=== PATIENT | female | born 1945 | race Caucasian/White ===

== ENCOUNTER 2017-10-04 14:19 | Outpatient (CLI) | payer MEDICARE, BC ==
[2017-10-04 16:10] LABS: #Basophils 0.1 thou/uL (0.0-0.2); #Eosinphils 0.3 thou/uL (0.0-0.7); #Lymphocytes 2.5 thou/uL (1.20-3.40); #Monocytes 0.3 thou/uL (0.11-0.59); #Neutrophils 3.4 thou/uL (1.40-6.50); %Basophils 1.2 % (0.0-1.0); %Eosinophils 4.4 % (0.0-10.0); %Lymphocytes 38.9 % (21.0-51.0); %Neutrophils 51.6 % (42.0-75.0); Hemoglobin 12.5 g/dL (12.0-16.0); Mean Corpuscular HGB CONC 34.7 g/dL (32.0-36.0); Mean Corpuscular Hemoglobin 31.6 pg (27.0-31.0); Mean Corpuscular Volume 91.1 fL (78.0-98.0); Mean Platelet Volume 6.7 fL (7.4-10.4); Platelet Count 273 thou/uL (130-400); RBC Distribution Width 11.4 % (11.5-14.5); Red Blood Cell (RBC) Count 3.95 mill/uL (4.20-5.40); White Blood Cell (WBC) Count 6.5 thou/uL (4.8-10.8)
== END 2017-10-04 14:20 | disposition home or self-care (01) ==
LOC: LABBT 14:19
PROVIDERS: ATTEND Orthopaedic Surgery Hand Surgery
DX: Z01.812 Encounter for preprocedural laboratory examination (principal); M06.341 Rheumatoid nodule, right hand
CPT/HCPCS: 85025

== ENCOUNTER 2017-10-11 07:52 | Day surgery (SDC) | payer MEDICARE, BC ==
[2017-10-04 14:29] VITALS: BMI 25.4
[2017-10-11] MEDS ORDERED: Clindamycin/D5W 600 mg/50 ml Premix Bag ONE (09:10)
[2017-10-11] MEDS ORDERED: Bacitracin Zinc Ointment 30 gm TUBE ONE (10:19)
[2017-10-11] MEDS ORDERED: Betamet Acet/Betamet Na Ph 30 MG/5 ML VIAL ONE (10:19)
[2017-10-11] MEDS ORDERED: Bupivacaine PF 0.5% 30 ML VIAL ONE (10:19)
[2017-10-11] MEDS ORDERED: Fentanyl 100 MCG/2 ML VIAL ONE (10:53)
[2017-10-11] MEDS ORDERED: PROPOFOL 200 MG/20 ML VIAL ONE (13:01)
[2017-10-11] MEDS ORDERED: Ketorolac Tromethamine 30 MG/ML VIAL ONE (13:07)
--- NOTE | 2017-10-11 13:13 | OP ---
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 POSTOPERATIVE DIAGNOSIS: Right ring finger giant cell tumor. SURGEON: Dr. Ac Lucreo COMPLICATIONS: None. PROCEDURE PERFORMED: 1. Excisional biopsy of giant cell tumor approximately 2 cm x 1 cm mass ulnar aspect ring finger at the DIP joint. 2. Arthrotomy distal interphalangeal joint with synovectomy. FINDINGS: The tumor was extensively growing ulnar to the extensor tendon terminal aspect at the DIP joint, right ring finger forcing it on the 4th radially. PROCEDURE IN DETAIL: After successful general endotracheal anesthesia was achieved, the limb was pre pped and draped. The mass identified. The anesthesia was propofol for sedation with augmentation wi th 15 mL 0.5% Marcaine block preprocedure and 5 mL after procedure. We waited 5 minutes, checked for sensory and it was blocked so we exsanguinated the limb, inflated to urniquet to 250 mmHg pressure. We made a curvilinear J-shaped incision over the mass. This was vasquez ied through skin, subcutaneous tissue dissecting with a [place] blade until we found extensor mechanis m preserved all of it that was present. We then lifted the mass out over the ulna 3 mm of the distal phalangeal joint found at the arthrotomy across the joint until we could see no more further evidenc e of the mass was involving other tissue and we just shelled it out using a combination of tenotomy s cissors and a pickup. We then saw some redundant skin where the mass had been most prominent, so we resected about 2 cm wid e x 3.5 cm long area of dermis, epidermis completely which was sent off with the specimen. We then irrigated the area, obtained hemostasis, closed with interrupted 4-0 nylon simple pattern jus t before placing 3 mL 63 mL of Celestone around the tendon into the joint. There was no instability, but in order to protect the extensor mechanism that had been dissected around after we closed the sk in, obtaining hemostasis and put a soft dressing with bacitracin and Adaptic, Kerlix, and then we angélica jerome the middle finger splint holding the DIP joint of his right ring finger in neutral position with sagittal plane. She left the operating room without evidence of anesthetic or operative complication .
== END 2017-10-11 13:45 | disposition home or self-care (01) ==
LOC: SDC 07:52
PROVIDERS: ATTEND Orthopaedic Surgery Hand Surgery
PROC: 0RBW0ZX Excision of Right Finger Phalangeal Joint, Open Approach, Diagnostic (ICD-10-PCS; principal; 2017-10-11)
DX: M06.341 Rheumatoid nodule, right hand (principal); M19.041 Primary osteoarthritis, right hand; Z79.82 Long term (current) use of aspirin; Z79.899 Other long term (current) drug therapy; Z88.0 Allergy status to penicillin; Z88.1 Allergy status to other antibiotic agents; Z88.5 Allergy status to narcotic agent; Z88.8 Allergy status to other drugs, medicaments and biological substances; Z98.890 Other specified postprocedural states
CPT/HCPCS: 88305; 96374; J0702; J1885; J3010; J3490; S0020

== ENCOUNTER 2017-11-07 18:17 | Emergency (ER) | payer MEDICARE, BC ==
--- NOTE | 2017-11-07 19:21 | CT ---
CT HEAD NONCONTRAST: INDICATIONS: Headache. FINDINGS: There is a prominent region of CSF density of the anterior right cranial fossa with scalloping of the adjacent parenchyma. There are a few internal septae. There is evidence to indicate mild chronic i schemic disease. No acute intracranial hemorrhage. The ventricular system is normal in size. No si gnificant shift of midline. IMPRESSION: Large, partially septated, cystic abnormality of the anterior right cranial fossa. Recommend correla tion with prior imaging, if available. This does not result in acute edema or significant shift of m idline. If prior comparisons are not available, appropriate clinical followup is recommended, and MRI brain with and without contrast may be performed on a nonemergent basis. POS: FELY
== END 2017-11-07 19:05 | disposition home or self-care (01) ==
LOC: SCSER 18:17
DX: S09.90XA Unspecified injury of head, initial encounter (principal); F32.9 Major depressive disorder, single episode, unspecified; Z79.899 Other long term (current) drug therapy; W22.8XXA Striking against or struck by other objects, initial encounter; Y92.59 Other trade areas as the place of occurrence of the external cause
CPT/HCPCS: 70450

== ENCOUNTER 2017-12-21 09:48 | Outpatient (CLI) | payer MEDICARE, BC ==
--- NOTE | 2017-12-21 18:40 | MRI ---
PRE AND POSTCONTRAST ENHANCED MRI IMAGES OF BRAIN: 12/21/17 COMPARISON: Comparison made to CT brain from 11/07/17. Multiplanar and multisequence pre and postcontrast enhanced MRI images of the brain obtained. Images demonstrate a largely septated right frontal lobe cystic lesion. This appears to be in the ant erior aspect of the superior right frontal lobe. There is no definite evidence of focal areas of enha ncement on the contrast enhanced images. No solid component seen of this lesion. The lesion appears t o be intra-axial. No significant mass effect is seen from this. No other significant intracranial mas s lesion seen. Some deep white matter ischemic changes are present. No evidence of areas of diffusion restriction seen. IMPRESSION: Right frontal intra-axial septated cystic lesion. No associated enhancing masses or lesions seen. No extensive surrounding areas of invasion or extension seen into the right frontal lobe. No evidence of focal areas of enhancement seen to suggest malignancy. POS: JAYJAY
== END 2017-12-21 09:49 | disposition home or self-care (01) ==
LOC: SCSMRI 09:48
PROVIDERS: ATTEND Neurological Surgery
DX: G93.0 Cerebral cysts (principal)
CPT/HCPCS: 70553; 82565

== ENCOUNTER 2018-03-07 08:47 | Outpatient (CLI) | payer MEDICARE, BC | END 2018-03-07 08:48 | disposition home or self-care (01) | LOC: BICMAMMO 08:47 | PROVIDERS: ATTEND Family Medicine | DX: Z12.31 Encounter for screening mammogram for malignant neoplasm of breast (principal); Z85.038 Personal history of other malignant neoplasm of large intestine | CPT/HCPCS: 77063; 77067 ==

== ENCOUNTER 2019-03-21 12:14 | Outpatient (CLI) | payer MEDICARE, BC ==
--- NOTE | 2019-03-21 12:35 | RAD ---
EXAM: Two views chest PROVIDED CLINICAL HISTORY: Inflammatory polyarthropathy. Shortness of breath. COMPARISON: None FINDINGS: Cardiac silhouette and pulmonary vasculature are within normal limits. There is blunting of the cost ophrenic angles bilaterally suggesting bilateral pleural effusions and associated atelectasis. Slightly greater patchy parenchymal density seen at the lateral right lung base which may also be rel ated to atelectasis, but right middle lobe pneumonia cannot be entirely excluded as there is mild patchy density seen in this region on the lateral view. Vascular calcifications are seen in the thora cic aorta. Mild degenerative changes noted spine. Surgical clips overlie the right upper quadrant. IMPRESSION: 1. Small bilateral pleural effusions and atelectasis. In addition, there is suggestion of parenchymal densities within the right middle lobe which may be attributable to pneumonia. Follow-up to resolution is recommended..
== END 2019-03-21 12:15 | disposition home or self-care (01) ==
LOC: SCSRAD 12:14
PROVIDERS: ATTEND Internal Medicine Rheumatology
DX: M06.4 Inflammatory polyarthropathy (principal); J90 Pleural effusion, not elsewhere classified; J98.11 Atelectasis
CPT/HCPCS: 71046

== ENCOUNTER 2019-06-27 12:23 | Outpatient (CLI) | payer MEDICARE, BC ==
--- NOTE | 2019-06-27 13:17 | RAD ---
CHEST 2 VIEWS: HISTORY: Dyspnea. COMPARISON: None. FINDINGS: There is bilateral costophrenic angle blunting with some linear and pleural-based parenchymal changes bilaterally which appear to be most likely some scarring. Arthrosis changes left shoulder. No conf luent pneumonia, overt edema, or pleural effusion. IMPRESSION: Stable chronic changes bilaterally. No acute process. POS: C
== END 2019-06-27 12:24 | disposition home or self-care (01) ==
LOC: RAD 12:23
PROVIDERS: ATTEND Internal Medicine Critical Care Medicine
DX: R06.00 Dyspnea, unspecified (principal)
CPT/HCPCS: 71046

== ENCOUNTER 2021-10-15 10:26 | Outpatient (CLI) | payer MEDICARE, BC | END 2021-10-15 10:27 | disposition home or self-care (01) | LOC: BICMAMMO 10:26 | PROVIDERS: ATTEND Internal Medicine Rheumatology | DX: M81.0 Age-related osteoporosis without current pathological fracture (principal); M85.88 Other specified disorders of bone density and structure, other site | CPT/HCPCS: 77080 ==

== ENCOUNTER 2022-11-19 13:48 | Outpatient (CLI) | payer MEDICARE, BC ==
[~2022-11-19 13:48] MED LIST: Iopamidol 370 76% 100 ML VIAL ONE
== END 2022-11-19 13:49 | disposition home or self-care (01) ==
LOC: BICCT 13:48
PROVIDERS: ATTEND Internal Medicine Rheumatology
DX: M05.10 Rheumatoid lung disease with rheumatoid arthritis of unspecified site (principal); R91.1 Solitary pulmonary nodule; J98.4 Other disorders of lung; E04.1 Nontoxic single thyroid nodule; R91.8 Other nonspecific abnormal finding of lung field
CPT/HCPCS: 71260; 82565; Q9967

== ENCOUNTER 2022-11-24 14:22 | Outpatient (CLI) | payer MEDICARE, BC | END 2022-11-24 14:23 | disposition home or self-care (01) | LOC: BICMAMMO 14:22 | PROVIDERS: ATTEND Internal Medicine Rheumatology | DX: M81.0 Age-related osteoporosis without current pathological fracture (principal); M85.88 Other specified disorders of bone density and structure, other site | CPT/HCPCS: 77080 ==

== ENCOUNTER 2023-12-30 14:29 | Outpatient (CLI) | payer MEDICARE, BC | END 2023-12-30 14:30 | disposition home or self-care (01) | LOC: BICMAMMO 14:29 | PROVIDERS: ATTEND Internal Medicine Rheumatology | DX: M81.0 Age-related osteoporosis without current pathological fracture (principal) | CPT/HCPCS: 77080 ==